=== PATIENT | female | born 1950 | race Caucasian/White ===

== ENCOUNTER → 2021-08-13 09:55 | Outpatient (CLI) | payer MEDICARE, SELFPAY ==
[2021-08-13 18:42] LABS: Add Manual Diff / Slide Review NO; Basophils Absolute Auto 0 /uL (0-100); Basophils Percent Auto 0.3 % (0-2); Eosinophils Absolute Auto 0 /uL (0-450); Eosinophils Percent Auto 0.4 % (2-4); Hematocrit 39.1 % (36-46); Hemoglobin 13.5 g/dL (12.0-16.0); Lymphocytes Absolute Auto 1200 /uL (1100-4500); Lymphocytes Percent Auto 20.2 % (25-40); Mean Corpuscular HGB Conc 34.6 % (30-36); Mean Corpuscular Hemoglobin 32.3 PG (26-34); Mean Corpuscular Volume 93.4 fL (80-100); Monocytes Absolute Auto 400 /uL (0-900); Monocytes Percent Auto 6.6 % (3-14); Neutrophils Absolute Auto 4500 /uL (1500-7000); Neutrophils Percent Auto 72.5 % (50-75); Platelet Count 397 X10^3/uL (150-400); Red Blood Cell Count 4.19 X10^6/uL (4.0-5.2); Red Cell Distribution Width 12.8 % (11.6-14.8); White Blood Cell Count 6.2 X10^3/uL (4.5-11.0)
[2021-08-13 19:16] LABS: Erythrocyte Sedimentation Rate 14 MM/HR (0-20)
[2021-08-13 19:19] LABS: Alanine Aminotransferase 17 IU/L (<35); Alkaline Phosphatase 68 U/L (38-126); Aspartate Aminotransferase 25 IU/L (14-36); BUN Creatinine Ratio 39.2 (6-22); Bilirubin Total 0.9 mg/dL (0.2-1.3); Bilirubin Unconjugated 0.9 mg/dL (0.0-1.1); Blood Urea Nitrogen 31 mg/dL (7-17); Calcium 10.3 mg/dL (8.4-10.2); Carbon Dioxide 26 mmol/L (22-32); Chloride 104 mmol/L (98-107); Estimated Glomerular Filt Rate > 60 mL/min (>60); Globulin 2.5 g/dL (1.7-4.1); Glucose 99 mg/dL (80-110); HEMOLYSIS < 15 (0-50); Potassium 4.1 mmol/L (3.4-5.1); Sodium 141 mmol/L (137-145); Total Protein 7.5 g/dL (6.3-8.2)
[2021-08-13 19:33] LABS: TSH w/ Reflex to FT4 0.83 uIU/mL (0.47-4.68)
[2021-08-13 20:08] LABS: Vitamin B12 464 pg/mL (239-931)
== END ==
PROVIDERS: PCP Family Medicine; Visit Provider Family Medicine
DX: G47.00 Insomnia, unspecified (principal); R53.83 Other fatigue; R63.0 Anorexia
CPT/HCPCS: 80048; 80076; 82607; 84443; 85025; 85651

== ENCOUNTER → 2021-08-28 11:24 | Outpatient (CLI) | payer MEDICARE, SELFPAY ==
[2021-08-30 12:31] LABS: Parathyroid Hormone, Intact 48 pg/mL (15-65)
[2021-09-01 15:12] LABS: Albumin 3.8 g/dL (2.9-4.4); Alpha 1 Globulin 0.3 g/dL (0.0-0.4); Alpha 2 Globulin 0.9 g/dL (0.4-1.0); Beta 1 Globulin 0.9 g/dL (0.7-1.3); Gamma Globulin 0.6 g/dL (0.4-1.8); Protein, Total 6.4 g/dL (6.0-8.5)
== END ==
PROVIDERS: PCP Family Medicine; Visit Provider Family Medicine
DX: E83.52 Hypercalcemia (principal); R63.4 Abnormal weight loss
CPT/HCPCS: 82310; 83970; 84155; 84165